=== PATIENT | male | born 1995 | race Caucasian/White ===

== ENCOUNTER 2016-12-09 20:14 | Emergency (ER) | payer BC ==
[~2016-12-09] VITALS: Ht 172.7 cm; Wt 69.0 kg
[2016-12-09] MEDS ORDERED: SODIUM CHLORIDE 0.9% 1,000ML IVBOLUS ONE (20:30)
[2016-12-09] MEDS ORDERED: SODIUM CHLORIDE FLUSH 10ML SYR IVF ONE (20:30)
[2016-12-09 20:51] LABS: HEMATOCRIT 45.5 % (39.2-51.8); HEMOGLOBIN 15.8 g/dL (13.7-18.0); WHITE BLOOD COUNT 9.6 x10^3/uL (3.4-10)
[2016-12-09 21:04] LABS: BLOOD UREA NITROGEN 11 mg/dL (7-18)
[2016-12-09 22:04] LABS: HEMATOCRIT 50.4 % (39.2-51.8); HEMOGLOBIN 16.4 g/dL (13.7-18.0); WHITE BLOOD COUNT 13.7 x10^3/uL (3.4-10)
[2016-12-09 22:25] VITALS: BP 136/80
== END 2016-12-09 22:34 | disposition home or self-care (01) ==
LOC: ED 21:49
DX: K29.01 Acute gastritis with bleeding (principal); F17.200 Nicotine dependence, unspecified, uncomplicated; Z88.8 Allergy status to other drugs, medicaments and biological substances
CPT/HCPCS: 36415; 71020; 80048; 82040; 83690; 85025; 85610; 99285